=== PATIENT | female | born 1955 | race Caucasian/White ===

== ENCOUNTER 2017-11-01 20:04 | Emergency (ER) | payer SELFPAY ==
[~2017-11-01] VITALS: Ht 165.1 cm; Wt 112.7 kg
[~2017-11-01 20:04] MED LIST: PERM5CRE TOP
[2017-11-01 20:21] VITALS: BP 154/86; PULSE 106; RESP 20; TEMP 98.4; O2SAT 92
[2017-11-01 20:52] VITALS: PULSE 97; RESP 20; O2SAT 94
[2017-11-01] MEDS ORDERED: VENTAER INH (21:45)
[2017-11-01] MEDS ORDERED: GUAI100S5 PO (21:45)
[2017-11-01] MEDS ORDERED: BENZ100 PO (21:45)
[2017-11-01] MEDS ORDERED: MEDR4PAK PO (21:45)
--- NOTE | 2017-11-01 21:45 | PD ---
HPI Chief Complaint: Cold / Flu Symptoms Time Seen by Provider: 21:31 Travel History International Travel<30 days: No Contact w/Intl Traveler<30days: No Traveled to known affect area: No History of Present Illness HPI 62-year-old female with 2 weeks of cough and congestion after last week having fever. Patient did not have flu vaccine. Presents because of persistent cough. Shortness of breath. Positive tobacco use. Occasional wheezing. PFSH Past Medical History Narrative Medical Arthritis tobaccoism nursing notes reviewed Arthritis: Yes Cancer: No Cardiovascular Problems: No Cerebrovascular Accident: No Diminished Hearing: No Endocrine: Yes Gastrointestinal Disorders: No Genitourinary: No Headaches: No Hepatitis: No Hypertension: No Immune Disorder: No Implanted Vascular Access Dvce: No Kidney Stones: No Musculoskeletal: Yes Psychiatric: No Reproductive: No Immunizations Current: Yes Migraines: No Renal Failure: No Seizures: No Sleep Apnea: No Thyroid Disease: Yes Ulcer: No PNEUMOCCOCAL Vaccine (Year): 2 ?: Not Menopausal: Yes : 2 Para: 2 Past Surgical History Section: Yes (81, 83) Gynecologic Surgery: Yes Other Surgery: No Social History Alcohol Use: Yes (occ.) Tobacco Use: Yes (1 ppd) Substance Use: No Allergies-Medications (Allergen,Severity, Reaction): Coded Allergies: diclofenac (Verified Allergy, Severe, 11/01/17) etodolac (Verified Allergy, Severe, HIVES,DIZZY,N/V,PASSED OUT, 11/01/17) flurbiprofen (Verified Allergy, Severe, HIVES,DIZZY,N/V,PASSED OUT, ) ibuprofen (Verified Allergy, Severe, HIVES,DIZZY,N/V,PASSED OUT, 11/01/17) indomethacin (Verified Allergy, Severe, HIVES,DIZZY,N/V,PASSED OUT, ) ketoprofen (Verified Allergy, Severe, HIVES,DIZZY,N/V,PASSED OUT, 11/01/17 ) ketorolac (Verified Allergy, Severe, HIVES,DIZZY,N/V,PASSED OUT, 11/01/17) naproxen (Verified Allergy, Severe, HIVES,DIZZY,N/V,PASSED OUT, 11/01/17) oxaprozin (Verified Allergy, Severe, HIVES,DIZZY,N/V,PASSED OUT, 11/01/17) Reported Meds & Prescriptions Reported Meds & Active Scripts Active Tessalon Perles (Benzonatate) 100 Mg Cap 100 Mg PO TID PRN Ventolin Hfa 18 GM Inh (Albuterol Sulfate) 90 Mcg/Act Aer 2 Puff INH Q4-6H PRN Medrol Dosepak (Methylprednisolone) 4 Mg Dspk 4 Mg PO DIRECTED Per Pharmacist direction Guaifen-Codeine 100-10 mg/5 ml (Codeine Phosphate/Guaifenesin) 10 Mg-100 Mg/5 Ml Liquid 5-10 Ml PO Q6HR PRN Review of Systems Except as stated in HPI: all other systems reviewed are Neg Physical Exam Narrative GENERAL: Well-developed well-nourished female in acute distress no respiratory distress SKIN: Warm and dry. HEAD: Normocephalic. EYES: No scleral icterus. No injection or drainage. NECK: Supple, trachea midline. No JVD or lymphadenopathy. CARDIOVASCULAR: Regular rate and rhythm without murmurs, gallops, or rubs. RESPIRATORY: Breath sounds equal bilaterally. No accessory muscle use. GASTROINTESTINAL: Abdomen soft, non-tender, nondistended. MUSCULOSKELETAL: No cyanosis, or edema. BACK: Nontender without obvious deformity. No CVA tenderness. Data Data Last Documented VS Vital Signs Date Time Temp Pulse Resp B/P (MAP) Pulse Ox O2 Delivery O2 Flow Rate FiO2 11/01/17 22:43 90 20 140/88 (105) 97 11/01/17 20:21 98.4 Orders Orders Chest, Single Ap (11/01/17 ) Ed Discharge Order (11/01/17 22:18) MDM Medical Decision Making Medical Screen Exam Complete: Yes Emergency Medical Condition: Yes Medical Record Reviewed: Yes Interpretation(s) Last Impressions Chest X-Ray 11/01/17 0000 Signed Impressions: Service Date/Time: Wednesday, November 01, 2017 21:57 - CONCLUSION: The lungs are clear. Husam Tate MD Vital Signs Date Time Temp Pulse Resp B/P (MAP) Pulse Ox O2 Delivery O2 Flow Rate FiO2 11/01/17 22:43 90 20 140/88 (105) 97 11/01/17 20:52 97 20 94 11/01/17 20:21 98.4 106 20 154/86 (108) 92 Differential Diagnosis Bronchitis pneumonia pharyngitis viral syndrome COPD CHF Narrative Course Few crackles to left base that clear posttussive only chest x-ray ordered; patient presents with symptoms consistent with bronchitis persistent cough. On Medrol Dosepak albuterol inhaler Tessalon Perles as needed for coughing. Chest x-ray shows no acute process Patient stable and prescriptions provided. Diagnosis Primary Impression: Bronchitis Referrals: Primary Care Physician call for appointment Patient Instructions: General Instructions Med/Other Pt SpecificInfo: Prescription(s) given Scripts Benzonatate (Tessalon Perles) 100 Mg Cap 100 MG PO TID Y for COUGH, #7 CAP 0 Refills Prov: Annel Corcoran MD 11/01/17 Albuterol 18 GM Inh (Ventolin Hfa 18 GM Inh) 90 Mcg/Act Aer 2 PUFF INH Q4-6H Y for SHORTNESS OF BREATH, #1 INHALER 0 Refills Prov: Annel Corcoran MD 11/01/17 Methylprednisolone Dosepak (Medrol Dosepak) 4 Mg Dspk 4 MG PO DIRECTED, #1 DSPK 0 Refills Per Pharmacist direction Prov: Annel Corcoran MD 11/01/17 Codeine Phosphate/Guaifenesin (Guaifen-Codeine 100-10 mg/5 ml) 10 Mg-100 Mg/5 Ml Liquid 5-10 ML PO Q6HR Y for COUGH, #120 ML 0 Refills Prov: Annel Corcoran MD 11/01/17 Annel Corcoran MD Nov 01, 2017 21:45
--- NOTE | 2017-11-01 22:13 | RADRPT ---
EXAM DATE/TIME: 11/01/2017 21:57 [facility] COMPARISON: No previous studies available for comparison. INDICATIONS : Cough. MEDICAL HISTORY : Hypothyroidism SURGICAL HISTORY : section. ENCOUNTER: Initial ACUITY: 2 weeks PAIN SCORE: 0/10 LOCATION: Bilateral chest FINDINGS: A single view of the chest demonstrates the lungs to be symmetrically aerated without evidence of mas s, infiltrate or effusion. The cardiomediastinal contours are unremarkable. Moderate curvature of t he upper thoracic spine convex towards the right.. CONCLUSION: The lungs are clear. Husam Tate MD on November 01, 2017 at 22:10 Board Certified Radiologist. This report was verified electronically.
[2017-11-01 22:43] VITALS: BP 140/88
== END 2017-11-01 22:44 | disposition home or self-care (01) ==
LOC: PHEFT 20:04
DX: J40 Bronchitis, not specified as acute or chronic (principal); M19.90 Unspecified osteoarthritis, unspecified site; F17.200 Nicotine dependence, unspecified, uncomplicated; Z79.51 Long term (current) use of inhaled steroids; Z79.899 Other long term (current) drug therapy; Z88.8 Allergy status to other drugs, medicaments and biological substances
CPT/HCPCS: 71010; 99284